=== PATIENT | male | born 1945 | race African-American/Black ===

== ENCOUNTER 2020-09-05 14:01 | Emergency (ER) | payer OTHER ==
[~2020-09-05] VITALS: Ht 172.7 cm; Wt 82.0 kg
[2020-09-05] MEDS ORDERED: PRO1 PO (14:20)
[2020-09-05] MEDS ORDERED: LOSA25TA26 PO (14:20)
[2020-09-05 15:30] VITALS: BP 113/74
[2020-09-05] MEDS ORDERED: ACETAMINOPHEN 325MG TABLET PO ONE (15:30)
[2020-09-05] MEDS ORDERED: LIDOCAINE 5% PATCH TOP SCH (15:30)
[2020-09-05] MEDS ORDERED: TOPUD MT (15:39)
== END 2020-09-05 16:15 | disposition home or self-care (01) ==
LOC: ER 14:01
DX: S16.1XXA Strain of muscle, fascia and tendon at neck level, initial encounter (principal); I10 Essential (primary) hypertension; X58.XXXA Exposure to other specified factors, initial encounter; Y93.89 Activity, other specified; Y92.89 Other specified places as the place of occurrence of the external cause; Y99.8 Other external cause status
CPT/HCPCS: 99282